=== PATIENT | female | born 2005 | race Caucasian/White ===

== ENCOUNTER → 2025-03-14 14:17 | Outpatient (REF) | payer OTHER, SELFPAY | LOC: HWRAD 14:17 | PROVIDERS: ATTENDING PHYSICIAN Obstetrics & Gynecology Gynecology; FAMILY PHYSICIAN Pediatrics | DX: N92.1 Excessive and frequent menstruation with irregular cycle (principal) | CPT/HCPCS: 76830; 76856 ==